=== PATIENT | male | born 1965 | race Caucasian/White ===

== ENCOUNTER 2018-07-14 20:27 | Observation (INO) ==
--- NOTE | 2018-07-14 20:59 | Emergency Department Note ---
Disposition Clinical Impression: Facial droop Disposition: Admitted As Inpatient Referrals: Cosmo Jean MD [Primary Care Provider] - Forms: ED Satisfaction Letter General Adult HPI - General Chief complaint: ED Neuro Symptoms/Deficit Stated complaint: NUMBNESS TO FACE Time Seen by Provider: 07/14/18 20:41 Source: patient Limitations: no limitations - History of Present Illness Pain Scale: 0 - Related Data Home Medications Medication Instructions Recorded Confirmed No Known Home Drugs 07/14/18 07/14/18 Allergies Allergy/AdvReac Type Severity Reaction Status Date / Time No Known Allergies Allergy Verified 07/14/18 20:29 Past Medical History - Past Medical History Medical history: Reports: no medical history Psychiatric history: Reports: no psych history - Social History Smoking Status: Current some day smoker Smokeless Tobacco Status: No Alcohol use: Reports: occasionally Drug use: Reports: marijuana Physical Exam - General Limitations: no limitations General appearance: alert, in no apparent distress Course Vital Signs Temperature 98.6 F 07/14/18 20:29 Pulse Rate 82 07/14/18 20:29 Respiratory Rate 16 07/14/18 20:29 Blood Pressure 156/96 07/14/18 20:29 O2 Sat by Pulse Oximetry 97 07/14/18 20:29 Temperature 98.6 F 07/14/18 20:29 Pulse Rate 81 07/14/18 20:45 Respiratory Rate 15 07/14/18 20:45 Blood Pressure 146/93 07/14/18 20:45 O2 Sat by Pulse Oximetry 97 07/14/18 20:29 Oxygen Delivery Oxygen Delivery Room Air Medical Decision Making - Medical Records Medical records reviewed: Yes I reviewed the patient's medical records. - Lab Data Lab results reviewed: Yes I reviewed the patient's lab results. Result diagrams: 07/14/18 21:08 07/14/18 21:08 Lab Results 07/14/18 07/14/18 07/14/18 Range/Units 21:08 21:08 21:08 WBC 10.2 (4.3-11.1) K/mcL RBC 4.73 (4.19-5.50) M/mcL Hgb 15.3 (12.9-16.9) g/dL Hct 44.7 (37.5-50.1) % MCV 94.5 (83.0-100.0) fL MCH 32.3 (28.0-33.3) pg MCHC 34.2 (31.6-35.5) g/dL RDW 12.2 (11.5-14.5) % Plt Count 282 (140-400) K/mcL MPV 9.1 L (9.4-12.4) fL Immature Gran % 0.3 (0-4) % Seg Neutrophils % 56.9 % Lymphocytes % 32.1 % Monocytes % 8.8 % Eosinophils % 1.8 % Basophils % 0.1 % Neutrophils # 5.8 (1.6-8.9) K/mcL Lymphocytes # 3.3 (0.6-4.6) K/mcL Monocytes # 0.9 (0.0-1.3) K/mcL Eosinophils # 0.2 (0.0-0.6) K/mcL Basophils # 0.0 (0.0-0.2) K/mcL PT 10.0 (9.4-12.1) Seconds INR 0.9 APTT 35.4 (26.0-36.0) Seconds Sodium 139 (136-145) mEq/L Potassium 3.8 (3.5-5.1) mEq/L Chloride 105 (98-107) mEq/L Carbon Dioxide 28 (23-29) mEq/L BUN 20 (6-20) mg/dL Creatinine 1.18 (0.70-1.30) mg/dL Est GFR ( Amer) > 60 (> 60) Est GFR (Non-Af Amer) > 60 (> 60) BUN/Creatinine Ratio 17 (6-26) Glucose 115 H (70-105) mg/dL Calculated Osmolality 292 (280-300) Calcium 9.7 (8.6-10.3) mg/dL Total Bilirubin 0.3 (0.3-1.0) mg/dL Direct Bilirubin 0.1 (0.0-0.2) mg/dL Indirect Bilirubin 0.2 (0.0-1.2) mg/dL AST 23 (13-39) Units/L ALT 24 (7-52) Units/L Alkaline Phosphatase 93 (34-104) Units/L Troponin I < 0.03 (< 0.04) ng/mL Serum Total Protein 7.2 (6.4-8.9) g/dL Albumin 4.7 (3.5-5.7) g/dL Globulin 2.5 (2.4-3.5) g/dL Albumin/Globulin Ratio 1.9 (1.1-2.2) TSH 2.641 (0.340-5.600) mcIU/mL - Radiology Data Radiology results reviewed: Yes I reviewed the patient's radiology results. Attestation Statement - Attestation Attestation: I examined this patient and my medical decision-making was reviewed with the Resident Physician. I agree with the documented findings, disposition and treatment plan as described except to the extent set forth below. 53-year-old male presents emergency room for right facial numbness and tingling. Symptom onset was 2 days ago. States he noticed some numbness involving the right cheek. Has not felt the same in the past couple days. Tonight around 6 PM he thought the symptoms got worse. He had some tongue numbness intermittently as well for the past 2 days. His any vision changes. No headache. No numbness or weakness in his arms or legs. This is isolated right face complaints. On exam, patient has a right facial droop when you make him use his facial nerve. The forehead is spared. I do not feel this is a Bose's palsy. He does have smoking history. No other medications. He is otherwise healthy.
--- NOTE | 2018-07-14 21:01 | Emergency Department Note ---
Disposition Clinical Impression: Facial droop CVA (cerebral vascular accident) Qualifiers: CVA mechanism: unspecified Qualified Code(s): I63.9 - Cerebral infarction, un specified Disposition: Admitted As Inpatient Condition: Good Referrals: Cosmo Jean MD [Primary Care Provider] - Forms: ED Satisfaction Letter Neuro HPI - General Chief Complaint: ED Neuro Symptoms/Deficit Stated Complaint: NUMBNESS TO FACE Time Seen by Provider: 07/14/18 20:41 Source: patient Limitations: no limitations Nursing Notes Reviewed: Yes Vital Signs Reviewed: Yes - History of Present Illness HPI Narrative: 53-year-old male presenting with right-sided facial droop and right-sided upper extremity weakness. Onset was 2 days ago. He states he has never had a stroke before. He does note that the right side of his face feels different and has been drooping with twitching in his eye as well as right-sided tongue numbness. Tonight his symptoms changed to include weakness in his right upper extremity as well as dizziness. He denies any visual changes, nausea, vomiting, diarrhea, dysuria, hematuria, abdominal pain, SOB, or chest pain. - Related Data Home Medications: Home Medications Medication Instructions Recorded Confirmed No Known Home Drugs 07/14/18 07/14/18 Allergies/Adverse Reactions: Allergies Allergy/AdvReac Type Severity Reaction Status Date / Time No Known Allergies Allergy Verified 07/14/18 20:29 All systems ED: reviewed and negative except as stated. Review of Systems: As Per HPI Constitutional: Reports: weakness. Denies: fever, chills Eyes: Denies: eye pain, eye discharge, vision change Cardiovascular: Denies: chest pain, palpitations, dyspnea on exertion Respiratory: Denies: cough, dyspnea, wheezes Gastrointestinal: Denies: abdominal pain, nausea, vomiting, diarrhea Genitourinary: Denies: urgency, dysuria Musculoskeletal: Denies: back pain, neck pain Integumentary: Denies: rash, abrasion, lesions Neurological: Reports: weakness, numbness, paresthesias, confusion. Denies: headache, abnormal gait Psychiatric: Denies: anxiety, depression, suicidal thoughts, homicidal thoughts Endocrine: Denies: fatigue, heat or cold intolerance Hematological/Lymphatic: Denies: easy bleeding, easy bruising Allergic/Immunologic: Denies: facial swelling Past Medical History - Past Medical History Attestation: Yes The following information was validated with the patient. Medical history: Reports: no medical history Psychiatric history: Reports: no psych history - Social History Smoking Status: Current some day smoker Smokeless Tobacco Status: No Alcohol use: Reports: occasionally Drug use: Reports: marijuana Physical Exam - General Limitations: no limitations General appearance: alert, in no apparent distress - Head Head exam: atraumatic, normocephalic - Eye Eye exam: Present: normal appearance, PERRL, EOMI. Absent: nystagmus, periorbital swelling - Neck Neck exam: Present: normal inspection, full ROM, trachea midline - Chest Chest inspection: Present: normal inspection, symmetric chest wall rise. Absent: tenderness - Respiratory Respiratory exam: Present: normal lung sounds bilaterally. Absent: respiratory distress, wheezes, stridor, accessory muscle use - Cardiovascular Cardiovascular exam: Present: regular rate, normal rhythm, normal heart sounds - Abdominal Exam Abdominal exam: Present: soft, Non-Tender, normal bowel sounds. Absent: distention, guarding, rebound - Neurological Exam Neurological exam: Present: alert, oriented X3 - Expanded Neurological Exam Patient oriented to: Present: person, place, time Speech: Present: fluid speech Cranial nerves: EOM function (II, III, IV, ): Normal, facial sensation (V): Abnormal Right, facial palsy (VII): Abnormal Right, gag reflex (IX): Normal, spinal accessory function (XI): Normal, tongue deviation (XII): Normal Cerebellar function: heel to fernandez: Normal Motor strength - LUE: 5/5 Motor strength - RUE: 5/5 Motor strength - LLE: 5/5 Motor strength - RLE: 5/5 Upper motor neuron exam: aleksey neglect: Absent bilaterally Sensory exam upper extremity: light touch: Normal Sensory exam lower extremity: light touch: Normal Coma Scale Eye Opening: Spontaneous Coma Scale Motor Response: Obeys Commands Coma Scale Verbal Response: Oriented Coma Scale Total: 15 - Psychiatric Psychiatric exam: Present: normal affect, normal mood - Skin Skin exam: Present: warm, dry, intact Course Vital Signs Temperature 98.6 F 07/14/18 20:29 Pulse Rate 82 07/14/18 20:29 Respiratory Rate 16 07/14/18 20:29 Blood Pressure 156/96 07/14/18 20:29 O2 Sat by Pulse Oximetry 97 07/14/18 20:29 Temperature 98.6 F 07/14/18 20:29 Pulse Rate 81 07/14/18 20:45 Respiratory Rate 15 07/14/18 20:45 Blood Pressure 146/93 07/14/18 20:45 O2 Sat by Pulse Oximetry 97 07/14/18 20:29 Oxygen Delivery Oxygen Delivery Room Air Neuro Symptoms/Deficit - MDM Narrative Medical decision making narrative: 53-year-old male with no history of CVA presenting with right-sided facial droop and right upper extremity weakness. Symptoms started approximately 2 days ago. Given the patient is outside the stroke without no stroke alert was called. CT head obtained which revealed no evidence of acute hemorrhage. Lab work including CBC, BMP, PTT/INR, LFTs, troponin, TSH obtained which showed no acute findings. Patient does continue to have right-sided facial droop but shows no evidence of other acute neurological deficits. 324 milligrams aspirin given here in the emergency department. Discussed with family the need for admission for further stroke workup and possible MRI. Patient and his are agreeable to this plan. Discussed case with on-call hospitalist, Dr. Barrios who agrees with plan for admission. All questions answered. - Medical Records Medical records reviewed: Yes I reviewed the patient's medical records. - Lab Data Lab results reviewed: Yes I reviewed the patient's lab results. Result diagrams: 07/14/18 21:08 07/14/18 21:08 Lab Results 07/14/18 07/14/18 07/14/18 Range/Units 21:08 21:08 21:08 WBC 10.2 (4.3-11.1) K/mcL RBC 4.73 (4.19-5.50) M/mcL Hgb 15.3 (12.9-16.9) g/dL Hct 44.7 (37.5-50.1) % MCV 94.5 (83.0-100.0) fL MCH 32.3 (28.0-33.3) pg MCHC 34.2 (31.6-35.5) g/dL RDW 12.2 (11.5-14.5) % Plt Count 282 (140-400) K/mcL MPV 9.1 L (9.4-12.4) fL Immature Gran % 0.3 (0-4) % Seg Neutrophils % 56.9 % Lymphocytes % 32.1 % Monocytes % 8.8 % Eosinophils % 1.8 % Basophils % 0.1 % Neutrophils # 5.8 (1.6-8.9) K/mcL Lymphocytes # 3.3 (0.6-4.6) K/mcL Monocytes # 0.9 (0.0-1.3) K/mcL Eosinophils # 0.2 (0.0-0.6) K/mcL Basophils # 0.0 (0.0-0.2) K/mcL PT 10.0 (9.4-12.1) Seconds INR 0.9 APTT 35.4 (26.0-36.0) Seconds Sodium 139 (136-145) mEq/L Potassium 3.8 (3.5-5.1) mEq/L Chloride 105 (98-107) mEq/L Carbon Dioxide 28 (23-29) mEq/L BUN 20 (6-20) mg/dL Creatinine 1.18 (0.70-1.30) mg/dL Est GFR ( Amer) > 60 (> 60) Est GFR (Non-Af Amer) > 60 (> 60) BUN/Creatinine Ratio 17 (6-26) Glucose 115 H (70-105) mg/dL Calculated Osmolality 292 (280-300) Calcium 9.7 (8.6-10.3) mg/dL Total Bilirubin 0.3 (0.3-1.0) mg/dL Direct Bilirubin 0.1 (0.0-0.2) mg/dL Indirect Bilirubin 0.2 (0.0-1.2) mg/dL AST 23 (13-39) Units/L ALT 24 (7-52) Units/L Alkaline Phosphatase 93 (34-104) Units/L Troponin I < 0.03 (< 0.04) ng/mL Serum Total Protein 7.2 (6.4-8.9) g/dL Albumin 4.7 (3.5-5.7) g/dL Globulin 2.5 (2.4-3.5) g/dL Albumin/Globulin Ratio 1.9 (1.1-2.2) TSH 2.641 (0.340-5.600) mcIU/mL - Radiology Data Radiology results reviewed: Yes I reviewed the patient's radiology results. Head CT 07/14/18 20:57 IMPRESSION: No acute intracranial abnormality. D/ / Mariusz Rodrigez / Mariusz Rodrigez Interpreting Provider: Mariusz Rodrigez - EKG Data EKG attestation: Yes I reviewed and interpreted this EKG. EKG results narrative: Normal sinus rhythm rate of 77. Normal axis. NJ 129, QRS 90, QT 394, QTC 446. No evidence of ST elevation. No prior for comparison. NIH Stroke Scale - Level of Consciousness LOC: Alert - LOC Questions LOC Questions: Answers both correctly - LOC Commands LOC Commands: Performs both correctly - Best Gaze Best Gaze: Normal - Visual Visual: No visual loss - Facial Palsy Facial Palsy: Partial, total, or near-total paralysis of lower face - Motor Arms Motor Arm-Left: No drift for 10 seconds Motor Arm-Right: No drift for 10 seconds - Motor Legs Motor Leg-Left: No drift for 5 seconds Motor Leg-Right: No drift for 5 seconds - Limb Ataxia Limb Ataxia: Normal, No Ataxia - Sensory Sensory: Normal - Best Language Best Language: No aphasia - Dysarthria Dysarthria: Normal - Extinction and Inattention Extinction and Inattention: Normal - NIHSS Total Score NIHSS Total Score: 2 TPA Checklist - Source Information Source: Family - Eligibilty for IV tPA 1. LKW equal to or less than 4.5 hours be before treatment: No - LKW: 3-4.5 hrs Add. Warnings/Precautions Patient/family understanding: The patient/family members have been counseled and understood the risk, benefit, and alternatives of treatment.
[2018-07-14 21:20] LABS: Basophils % 0.1 %; Eosinophils # 0.2 K/mcL (0.0-0.6); Eosinophils % 1.8 %; Hematocrit 44.7 % (37.5-50.1); Hemoglobin 15.3 g/dL (12.9-16.9); Immature Granulocytes % 0.3 % (0-4); Lymphocytes # 3.3 K/mcL (0.6-4.6); Lymphocytes % 32.1 %; Mean Corpuscular HGB Conc 34.2 g/dL (31.6-35.5); Mean Corpuscular Hemoglobin 32.3 pg (28.0-33.3); Mean Corpuscular Volume 94.5 fL (83.0-100.0); Mean Platelet Volume 9.1 fL (9.4-12.4); Monocytes # 0.9 K/mcL (0.0-1.3); Monocytes % 8.8 %; Neutrophils # 5.8 K/mcL (1.6-8.9); Platelet Count 282 K/mcL (140-400); Red Blood Count 4.73 M/mcL (4.19-5.50); Red Cell Distribution Width 12.2 % (11.5-14.5); Segmented Neutrophils % 56.9 %
[2018-07-14 21:34] LABS: INR 0.9
[2018-07-14 21:36] LABS: Activated Partial Thrombo Time 35.4 Seconds (26.0-36.0)
[2018-07-14 21:42] LABS: Alanine Aminotransferase 24 Units/L (7-52); Albumin 4.7 g/dL (3.5-5.7); Albumin/Globulin Ratio 1.9 (1.1-2.2); Alkaline Phosphatase 93 Units/L (34-104); Aspartate Amino Transferase 23 Units/L (13-39); BUN/Creatinine Ratio 17 (6-26); Bilirubin,Direct 0.1 mg/dL (0.0-0.2); Bilirubin,Indirect 0.2 mg/dL (0.0-1.2); Bilirubin,Total 0.3 mg/dL (0.3-1.0); Blood Urea Nitrogen 20 mg/dL (6-20); Calcium 9.7 mg/dL (8.6-10.3); Carbon Dioxide 28 mEq/L (23-29); Chloride 105 mEq/L (98-107); Globulin 2.5 g/dL (2.4-3.5); Glucose 115 mg/dL (70-105); Osmolality,Calculated 292 (280-300); Potassium 3.8 mEq/L (3.5-5.1); Sodium 139 mEq/L (136-145); Total Protein 7.2 g/dL (6.4-8.9); Troponin I < 0.03 ng/mL (< 0.04); eGFR For Non-African Americans > 60 (> 60)
[2018-07-14 21:56] LABS: Thyroid Stimulating Hormone 2.641 mcIU/mL (0.340-5.600)
[2018-07-14] MEDS ORDERED: Aspirin 81 MG TAB.CHEW PO STA (22:28)
[2018-07-15] MEDS ORDERED: Naloxone 0.4 MG/ML INJ IVP PRN (00:49)
[2018-07-15] MEDS ORDERED: Acetaminophen 325 MG TABLET PO PRN (00:49)
[2018-07-15] MEDS ORDERED: diazePAM 10 MG/2 ML SYRINGE IVP PRN (00:54)
--- NOTE | 2018-07-15 01:32 | Internal Med History&Physical ---
Date of Encounter: 07/15/18 Time of Encounter: 00:45 Internal Medicine - H&P: HPI Chief complaint: right sided facial droop Admitted From: Emergency Dept Plans for Post Hospital Care: Home History of present illness: Mr. Merritt is a 53 year old male who presents with complaints of right arm weakness, paresthesias, numbness, and right-sided facial droop. Symptoms started about 2 days ago. Because of persistent facial droop, he and his decided to come to the ER for evaluation. His right arm weakness and numbness have essentially resolved. Workup in ER was negative, but he was admitted to hospitalist service for further workup and care. Upon my assessment of the patient, he does have a slight facial droop and difficulty blinking his right eye. He denies any speech difficulty, swallowing or choking problems. He denies any dysphagia. He denies any residual numbness, weakness, or parasthesias of his right arm or hand. According to patient and his , he has no chronic health problems. He has had no blood pressure problems, cholesterol problems, or diabetes. He takes no chronic medications. He does drink alcohol on a somewhat excessive basis, roughly one 12 pack of beer every 2 - 3 days. He also smokes about a pack a day. Past Med Surg Social Fam HX - Past Medical History Attestation: Yes The following information was validated with the patient. Source: patient, obtained from family, other (ER notes) Medical history: no medical history Psychiatric history: no psych history - Past Surgical History Surgical History: no surgical history - Social History Smoking Status: Current some day smoker Smokeless Tobacco Status: No Alcohol use: occasionally Drug use: marijuana Occupational status: employed Current living situation: Home, With Family Activity Level: Independent ambulation Recent Out of Country Travel Within the Last 8 Weeks: No - Family History Mother Hx Family Musculoskeletal Disorders: No Hx Family Neuromuscular Disorders: No Hx Family Neurologic Disorders: No Father Hx Family Musculoskeletal Disorders: No Hx Family Neuromuscular Disorders: No Hx Family Neurologic Disorders: No Internal Medicine - H&P: Meds No Known Home Drugs 07/14/18 [History] Allergy/AdvReac Type Severity Reaction Status Date / Time No Known Allergies Allergy Verified 07/14/18 20:29 - Constitutional Constitutional: no chills, no fever(s), no night sweats - EENT Eyes: no blurry vision, no change in vision Ears: no ear pain, no tinnitus Nose, mouth and throat: no nasal congestion, no sore throat - Cardiovascular Cardiovascular ROS IM: no chest pain, no dyspnea, no dyspnea on exertion - Respiratory Respiratory: no cough, no hemoptysis, no chest congestion, no excessive phlegm production, no change in phlegm color - Gastrointestinal Gastrointestinal: no abdominal pain, no diarrhea, no hematemesis, no hematochezia, no melena, no vomiting - Genitourinary Genitourinary ROS male: no dysuria, no flank pain - Musculoskeletal Musculoskeletal ROS IM: no arthralgias, no back pain - Integumentary Integumentary IM: no rash, no jaundice - Neurological Neurological ROS: focal weakness (right facial droop), numbness, paresthesias, n o abnormal speech, no confusion, no disequilibrium, no dizziness, no frequent falls, no headache(s) - Psychiatric Psychiatric: no anxiety, no depression - Endocrine Endocrine IM: no polydipsia, no polyphagia, no polyuria - Allergic/Immunologic Allergic/Immunologic: no GI upset with certain foods - Constitutional Vitals: Temp Pulse Resp BP Pulse Ox 98.3 F 66 17 145/94 97 07/15/18 00:37 07/15/18 00:37 07/15/18 00:37 07/15/18 00:37 07/15/18 00:37 General appearance: Present: cooperative, A&O X 3, pleasant, no acute distress, answers questions appropriately Exam: subtle right sided facial droop noted - Head Head exam: Present: atraumatic, normal inspection - Eye Eye exam: Present: EOMI, PERRL. Absent: scleral icterus Pupils: Present: normal accommodation - ENT ENT exam: Present: mucous membranes dry, normal exam, normal oropharynx - Neck Neck exam general surgery: Present: full ROM, supple. Absent: tenderness, nuchal rigidity, thyromegaly - Expanded Neck Exam Neck exam: Absent: carotid bruit - Respiratory Respiratory exam: Present: CTAB. Absent: chest wall tenderness, rales, respiratory distress, rhonchi, wheezes - Cardiovascular Cardiovascular exam: Present: RRR, +S1, +S2. Absent: diastolic murmur, systolic murmur - GI/Abdominal GI/Abdominal exam: Present: normal bowel sounds, soft. Absent: hepatomegaly, mass, splenomegaly, tenderness - Extremities Exam Extremities exam: Present: full ROM, normal capillary refill, warm, radial pulses palpable and symmetrical. Absent: calf tenderness, pedal edema, tenderness - Back Exam Back exam: Absent: CVA tenderness (L), CVA tenderness (R) - Neurological Exam Neurological exam: Present: alert, oriented X3, facial droop (slgith right sided). Absent: strengths equal and symetr throughout (slight weakness in right arm compared to left), speech deficit - Psychiatric Psychiatric exam: Present: normal affect, normal mood - Skin Skin exam: Present: dry, intact, warm Internal Med - H&P Results - Labs CBC & Chem 7: 07/14/18 21:08 07/14/18 21:08 Labs: Short CBC 07/14/18 Range/Units 21:08 WBC 10.2 (4.3-11.1) K/mcL Hgb 15.3 (12.9-16.9) g/dL Hct 44.7 (37.5-50.1) % Plt Count 282 (140-400) K/mcL Neutrophils # 5.8 (1.6-8.9) K/mcL BMP 07/14/18 21:08 Sodium 139 Potassium 3.8 Chloride 105 Carbon Dioxide 28 BUN 20 Creatinine 1.18 Glucose 115 H Calcium 9.7 Cardiac Enzymes 07/14/18 Range/Units 21:08 Troponin I < 0.03 (< 0.04) ng/mL Liver Function 07/14/18 Range/Units 21:08 Total Bilirubin 0.3 (0.3-1.0) mg/dL Direct Bilirubin 0.1 (0.0-0.2) mg/dL AST 23 (13-39) Units/L ALT 24 (7-52) Units/L Alkaline Phosphatase 93 (34-104) Units/L Albumin 4.7 (3.5-5.7) g/dL - EKG Data -: EKG Interpreted by Myself - EKG Data Prior EKG available for review: no EKG comments: 07/15/18 01:48 NSR - Impressions ITS Impressions Head CT 07/14/18 20:57 IMPRESSION: No acute intracranial abnormality. D/ / Mariusz Rodrigez / Mariusz Rodrigez Interpreting Provider: Mariusz Rodrigez - Diagnostic Studies CT scan - head Status: image reviewed by me (negative) - Assessment and plan (1) CVA (cerebral vascular accident) Current Visit: Yes Status: Acute Assessment and plan: 1. Will proceed with stroke work-up and protocol. 2. Will order MRI brain, ECHO, and Carotid Dopplers. 3. Scheduled neurochecks per RN. 4. Consult ST/PT/OT. 5. Monitor glucose and BP closely. 6. Will check lipid profile. 7. Start ASA and STATIN. Qualifiers: CVA mechanism: unspecified Qualified Code(s): I63.9 - Cerebral infarction, unspecified (2) Alcohol consumption heavy Current Visit: Yes Status: Chronic Assessment and plan: 1. Will place on CIWA protocol and monitor for withdrawal. 2. MVI/thiamine/Folate daily. (3) DVT prophylaxis Current Visit: Yes Status: Acute Assessment and plan: 1. Heparin SQ.
[2018-07-15] MEDS ORDERED: *HR* LORazepam 2 MG/ML VIAL IVP PRN (01:57)
[2018-07-15 05:50] LABS: Basophils % 0.2 %; Eosinophils # 0.2 K/mcL (0.0-0.6); Eosinophils % 2.4 %; Hematocrit 43.2 % (37.5-50.1); Hemoglobin 14.7 g/dL (12.9-16.9); Immature Granulocytes % 0.2 % (0-4); Lymphocytes # 3.1 K/mcL (0.6-4.6); Lymphocytes % 34.1 %; Mean Corpuscular Hemoglobin 32.1 pg (28.0-33.3); Mean Corpuscular Volume 94.3 fL (83.0-100.0); Mean Platelet Volume 8.9 fL (9.4-12.4); Monocytes # 0.8 K/mcL (0.0-1.3); Monocytes % 8.8 %; Platelet Count 247 K/mcL (140-400); Red Blood Count 4.58 M/mcL (4.19-5.50); Red Cell Distribution Width 12.3 % (11.5-14.5); Segmented Neutrophils % 54.3 %
[2018-07-15 06:01] LABS: INR 0.9; Prothrombin Time 10.2 Seconds (9.4-12.1)
[2018-07-15 06:04] LABS: Activated Partial Thrombo Time 34.9 Seconds (26.0-36.0)
[2018-07-15 06:10] LABS: Alanine Aminotransferase 21 Units/L (7-52); Albumin 4.1 g/dL (3.5-5.7); Alkaline Phosphatase 69 Units/L (34-104); Aspartate Amino Transferase 19 Units/L (13-39); BUN/Creatinine Ratio 20 (6-26); Bilirubin,Total 0.5 mg/dL (0.3-1.0); Blood Urea Nitrogen 19 mg/dL (6-20); Calcium 9.2 mg/dL (8.6-10.3); Carbon Dioxide 25 mEq/L (23-29); Chloride 108 mEq/L (98-107); Chol/HDL Ratio 3.3 (0-4.9); Cholesterol 162 mg/dL (< 200); Globulin 2.1 g/dL (2.4-3.5); Glucose 115 mg/dL (70-105); HDL Cholesterol 49 mg/dL (40-59); LDL Cholesterol,Calculated 97 mg/dL (0-99); Magnesium 2.2 mg/dL (1.6-2.6); Osmolality,Calculated 291 (280-300); Potassium 3.8 mEq/L (3.5-5.1); Sodium 139 mEq/L (136-145); Total Protein 6.2 g/dL (6.4-8.9); Triglycerides 80 mg/dL (< 150); eGFR For Non-African Americans > 60 (> 60)
[2018-07-15] MEDS: *HR* Heparin 5,000 UNIT/ML VIAL SQ SCH ×2 (06:55→17:03)
[2018-07-15 08:43] VITALS: BP 119/86
[2018-07-15] MEDS ORDERED: Folic Acid 1 MG TABLET PO SCH (09:00)
[2018-07-15] MEDS ORDERED: Vitamin B Complex/Vit C/Vit E 1 EACH TABLET PO SCH (09:00)
[2018-07-15] MEDS ORDERED: Thiamine (B-1) 100 MG TABLET PO SCH (09:00)
[2018-07-15] MEDS ORDERED: Aspirin Enteric Coated 81 MG Tablet PO SCH (09:00)
--- NOTE | 2018-07-15 12:25 | Discharge Summary ---
- NOTES TO OUTPATIENT PROVIDER Notes to Outpatient Provider: Patient with history of tobacco abuse was admitted for R facial droop, R UE weakness/numbness. MRI -ve for acute infarct. Echocardiogram and carotid doppler results were pending at the time of dc summary; will follow up with addendum. Patient was evaluated by PT/OT/Speech and was discharged home in stable condition with ASA and statin. Smoking cessation emphasized. OF note, he was complaing of low back pain and neurogenic claudiation. Lumbar XR showed 2mm subluxation of L3 on 4 and L4 on 5. Findings were discussed with Dr. Meehan who will evaluate the patient in clinic next 07/21 at 9am. Orders not resulted at time of discharge: Pending orders 07/15/18 00:53 EV echocardiogram Routine 07/15/18 04:00 Hgb A1C AM 0400 07/15/18 06:00 EV carotid duplex imaging BI AM 0600 07/15/18 09:59 XR lumbar spine w flex ext [XR] Routine Date of Encounter: 07/15/18 Time of Encounter: 10:00 - Discharge Diagnosis (1) Alcohol consumption heavy Priority: Secondary Status: Chronic (2) DVT prophylaxis Priority: Secondary Status: Acute (3) TIA (transient ischemic attack) Priority: Primary Status: Acute Hospital course: Mr. Merritt is a 53 year old male with history of tobacco abuse was admitted for R facial droop, R UE weakness/numbness. MRI -ve for acute infarct. Echocardiogram and carotid doppler results were pending at the time of dc summary; will follow up with addendum. . Patient was evaluated by PT/OT/Speech and was discharged home in stable condition with ASA and statin. Smoking cessation emphasized. OF note, he was complaing of low back pain and neurogenic claudiation. Lumbar XR showed 2mm subluxation of L3 on 4 and L4 on 5. Findings were discussed with Dr. Meehan who will evaluate the patient in clinic next 07/21 at 9am. Discharge discussed with: patient, family, nurse - Time Spent with Patient Total time spent providing and/or coordinating discharge services: 27 mins - Discharge Medications Prescriptions: RX: Aspirin Enteric Coated [Aspirin EC] 81 mg PO DAILY #30 tablet. RX: Atorvastatin [Lipitor] 80 mg PO HS #60 tablet Home Medications: RX: Aspirin Enteric Coated [Aspirin EC] 81 mg PO DAILY #30 tablet. 07/15/18 [Rx] RX: Atorvastatin [Lipitor] 80 mg PO HS #60 tablet 07/15/18 [Rx] Allergies/Adverse Reactions: Allergy/AdvReac Type Severity Reaction Status Date / Time No Known Allergies Allergy Verified 07/14/18 20:29 Date of admission: 07/14/18 23:24 Primary care physician: Cosmo Jean MD Consults: 07/15/18 00:49 Consult to Physical Therapy [CONS] Routine Comment: Evaluate, develop and implement POC Reason for Consult: TIA/stroke Does patient have active BEDREST order?: No Is patient medically & hemodynamically stable?: Yes Patient assessed for mobility or mobilized this visit?: No Consult to Speech Therapy [CONS] Routine Comment: Evaluate, develop and implement POC Reason for Consult: TIA/stroke Call Completed: No - Constitutional Vitals: Temp Pulse Resp BP Pulse Ox 98.1 F 82 16 119/86 93 07/15/18 08:42 07/15/18 08:42 07/15/18 08:42 07/15/18 08:42 07/15/18 09:18 General appearance: Present: cooperative, A&O X 3, pleasant, no acute distress, answers questions appropriately Exam: General: Alert and oriented, not in acute distress. HEENT:EOMI, pupils equal, round and reactive. Cardiovascular:Normal S1 & S2, No JVD. Pulse regular. Lungs: clear to auscultation, no wheezes/rales Abdomen:Soft, non-tender, no rigidity. Extremities:No deformity or swelling Neurological: Mild R facial droop. Power and sensation fully intact in all 4 limbs. No cerebellar signs, pronator drift -ve, Babinski downgoing bilaterally - Patient Status Disposition: Home, Self-Care Condition: Good Functional capacity at discharge: independent ambulation Overall status at discharge: patient is progressing back to baseline - Discharge Instructions Follow Up With: Cosmo Jean MD [Primary Care Provider] - 07/25/18 10:15 am Additional Instructions: ASA, statin for TIA Follow up with PCP Follow up with Dr. Meehan on 07/21 at 9am. Call to verify appt - Diet and Activity Activity: resume usual activities as tolerated Diet: regular diet
--- NOTE | 2018-07-15 14:49 | Electrocardiograph Report ---
[address] [address] Test Date: 2018-07-14 Pat Name: Vicente Merritt Department: EXAM12 Room: 2N4 Gender: M Protohistorian: : 1965 Requested By: Lisa Salguero Order Number: [id number] Reading MD: Keny Melchor Measurements Intervals [place] Rate: 77 P: 56 OR: 129 QRS: 45 QRSD: 90 T: 43 QT: 394 QTc: 446 Interpretive Statements Sinus rhythm Electronically Signed On 07-15-2018 14:48:18 EST by Keny Melchor
--- NOTE | 2018-07-15 14:56 | Electrocardiograph Report ---
[address] [address] Test Date: 2018-07-15 Pat Name: Vicente Merritt Department: 111 Room: [facility] [place] Gender: M Applied Technologist: MONSE : 1965 Requested By: Rachid Beck Order Number: [id number] Reading MD: Keny Melchor Measurements Intervals [place] Rate: 65 P: 57 PA: 132 QRS: 16 QRSD: 84 T: 57 QT: 415 QTc: 426 Interpretive Statements SINUS RHYTHM Electronically Signed On 07-15-2018 14:54:40 EST by Keny Melchor
[2018-07-16 12:38] LABS: Estimated Average Glucose 126 mg/dl
== END 2018-07-15 18:35 | disposition home or self-care (01) ==
LOC: 2NENU 20:27 → EMEROOARM 20:27 → SUATTDRO 23:24 → 2NENU 07-15 00:38
PROVIDERS: ADMIT Family Medicine; ATTEND Internal Medicine